=== PATIENT | female | born 1950 | race Caucasian/White ===

== ENCOUNTER → 2016-04-07 | Outpatient (CLI) | payer OTHER ==
--- NOTE | 2016-04-07 15:23 | REP ---
Clinical: Chronic medical renal disease. Technique: Real time powers scale and color evaluation using curved array transducer. Comparison: 02/01/2016. Findings: Right kidney is atrophic and echogenic measuring approximately 8.3 x 3.5 x 3.0 cm without hydronephrosis and includes 1.5 cm mid pole cyst. The left kidney is normal in reniform shape and echogenicity with increased central sinus fat and measures 12.9 x 5.5 x 4.1 cm without hydronephrosis, nephrolithiasis or cyst. Impression: Atrophic appearance to the right kidney. Left kidney demonstrates medical renal disease. Signed by Pj Ruby MD 04/07/2016 03:15 P
== END ==
LOC: M RAD 14:21
PROVIDERS: ATTEND Internal Medicine Nephrology
DX: N18.3 Chronic kidney disease, stage 3 (moderate) (principal); N26.1 Atrophy of kidney (terminal); N17.9 Acute kidney failure, unspecified

== ENCOUNTER → 2018-08-07 | Outpatient (REF) | payer MEDICARE | LOC: M LAB REF 12:12 | PROVIDERS: ATTEND Nurse Practitioner Adult Health | DX: N18.3 Chronic kidney disease, stage 3 (moderate) (principal) ==

== ENCOUNTER → 2019-04-29 | Outpatient (REF) | payer MEDICARE | LOC: M LAB REF 12:23 | PROVIDERS: ATTEND Nurse Practitioner Adult Health | DX: J02.9 Acute pharyngitis, unspecified (principal); R50.9 Fever, unspecified ==

== ENCOUNTER → 2020-08-27 | Outpatient (REF) | payer MEDICARE ==
[2020-08-28 09:44] LABS: TOTAL PROTEIN 7.3 GM/DL (6.4-8.2)
[2020-08-28 11:17] LABS: ALBUMIN 4.26 GM/DL (3.29-5.55); ALBUMIN % 58.4 % (55.8-66.1); ALPHA-1-GLOBULIN % 4.1 % (2.9-4.9); ALPHA-2-GLOBULINS 0.99 GM/DL (0.42-0.99); ALPHA-2-GLOBULINS % 13.6 % (7.1-11.8); BETA-1-GLOBULINS 0.39 GM/DL (0.28-0.60); BETA-1-GLOBULINS % 5.3 % (4.7-7.2); BETA-2-GLOBULINS 0.36 GM/DL (0.19-0.55); BETA-2-GLOBULINS % 4.9 % (3.2-6.5); GAMMA GLOBULIN % 13.7 % (11.1-18.8)
== END ==
LOC: M LAB REF 16:56
PROVIDERS: ATTEND Internal Medicine Nephrology
DX: E83.52 Hypercalcemia (principal)

== ENCOUNTER → 2020-09-29 | Outpatient (REF) | payer MEDICARE | LOC: M LAB REF 16:52 | PROVIDERS: ATTEND Internal Medicine Nephrology | DX: E83.52 Hypercalcemia (principal) ==

== ENCOUNTER → 2020-11-10 | Outpatient (REF) | payer MEDICARE | LOC: M LAB REF 16:07 | PROVIDERS: ATTEND Nurse Practitioner Adult Health | DX: Z01.812 Encounter for preprocedural laboratory examination (principal); E83.52 Hypercalcemia; N18.31 Chronic kidney disease, stage 3a ==

== ENCOUNTER → 2020-11-12 | Outpatient (CLI) | payer MEDICARE ==
[~2020-11-12] MED LIST: ISOVUE-370 76% 100ML VIAL As Ordered ONE
--- NOTE | 2020-11-13 09:23 | REP ---
INDICATION: CKD 3A, HYPERCALCEMIA. COMPARISON: None. TECHNIQUE: Standard helical technique before and after the intravenous administration of 100 cc Isovue 370. FINDINGS: The pre contrast enhanced portion examination shows a patent splenic densities to be within normal limits. There are a few tiny right nephroliths and there are 2 nonobstructing left nephroliths in the interpolar region. There is a 1.7 cm sized smoothly marginated structure which has higher than water density Hounsfield unit readings. The contrast-enhanced portion examination shows no evidence of measurable enhancement of the right renal structure. There is marked right renal atrophy/hypoplasia. Tiny cyst is seen in the superior pole the left kidney. Surgical clips are seen in the gallbladder fossa. The liver, spleen, pancreas, and adrenal glands are unremarkable. The abdominal aorta and para-aortic regions are within normal limits. There is calcified atherosclerotic change. There is no free fluid or free air. The bowel loops and the mesenteries are within normal limits. 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 Bone window technique throughout the examination shows spinal degenerative changes. IMPRESSION: 1. Nodule like finding arising from the right kidney, as described above, and likely representing a hyperdense cyst. There is no measurable contrast-enhancement. 2. Bilateral nonobstructing nephroliths. 3. There is no evidence of acute intra-abdominal or intrapelvic disease with findings and exam limitations as described above. <Electronically signed by Shun Liz > 11/13/20 [id number]
--- NOTE | 2020-11-13 09:27 | REP ---
INDICATION: CKD 3A, HYPERCALCEMIA COMPARISON: None. TECHNIQUE: Standard helical technique without intravenous contrast administration FINDINGS: Noncontrast enhanced limited evaluation of the mediastinum and pulmonary corie show no evidence of a mass or adenopathy. There are no pleural or pericardial effusions. The imaged osseous structures shows spinal degenerative changes. Evaluation of the lung healy shows no abnormal nodules, masses, or opacities. IMPRESSION: CT findings are within normal limits as described above. <Electronically signed by Shun Liz > 11/13/20 [id number]
== END ==
LOC: M RAD 17:17
PROVIDERS: ATTEND Internal Medicine Nephrology
DX: N18.31 Chronic kidney disease, stage 3a (principal); E83.52 Hypercalcemia
CPT/HCPCS: 71250; 74178; Q9967

== ENCOUNTER → 2021-08-13 | Outpatient (REF) | payer MEDICARE ==
[2021-08-13 18:19] LABS: INR 1.16; PROTHROMBIN TIME 15.2 SECONDS (12.7-14.5)
[2021-08-13 18:20] LABS: PARTIAL THROMBOPLASTIN TIME 32.6 SECONDS (25.9-37.0)
[2021-08-16 14:10] LABS: CARDIOLIPIN IGA ANTIBODY <9 APL U/mL (0-11); CARDIOLIPIN IGG ANTIBODY <9 GPL U/mL (0-14); CARDIOLIPIN IGM ANTIBODY <9 MPL U/mL (0-12)
== END ==
LOC: M LAB REF 16:12
PROVIDERS: ATTEND Nurse Practitioner Adult Health
DX: H34.823 Venous engorgement, bilateral (principal)

== ENCOUNTER → 2021-11-26 | Outpatient (REF) | payer MEDICARE ==
[2021-11-26 18:35] LABS: PERCENT SATURATION 4.1 % (13.2-45.0)
== END ==
LOC: M LAB REF 17:04
PROVIDERS: ATTEND Nurse Practitioner Family
DX: D50.9 Iron deficiency anemia, unspecified (principal)

== ENCOUNTER → 2021-12-06 | Outpatient (REF) | payer MEDICARE ==
[2021-12-07 12:19] LABS: HEMATOCRIT 32.4 % (36.0-47.0)
[2021-12-07 13:03] LABS: PERCENT SATURATION 16.1 % (13.2-45.0)
== END ==
LOC: M LAB REF 11:30
PROVIDERS: ATTEND Nurse Practitioner Adult Health
DX: D64.9 Anemia, unspecified (principal)

== ENCOUNTER → 2021-12-29 | Outpatient (CLI) | payer MEDICARE ==
[~2021-12-29] MED LIST changes: +ISOVUE-300 61% 50ML VIAL ONE; -ISOVUE-370 76% 100ML VIAL As Ordered ONE; +LIDOCAINE 1% MDV 20ML VIAL ONE; +methylPREDNISolone SUSP 40MG/ML 1ML VIAL (DEPO MEDROL) ONE
== END ==
LOC: M PLAIMG 14:50
PROVIDERS: ATTEND Physician Assistant
DX: M19.012 Primary osteoarthritis, left shoulder (principal)
CPT/HCPCS: 20610; 76000; J1030; Q9967

== ENCOUNTER → 2022-04-04 | Outpatient (REF) | payer MEDICARE | LOC: M LAB REF 11:08 | PROVIDERS: ATTEND Nurse Practitioner Adult Health | DX: D50.9 Iron deficiency anemia, unspecified (principal) ==

== ENCOUNTER → 2022-04-20 | Outpatient (CLI) | payer MEDICARE | LOC: M SOG 07:48 | PROVIDERS: ATTEND Orthopaedic Surgery | DX: M25.512 Pain in left shoulder (principal); M54.2 Cervicalgia; M19.012 Primary osteoarthritis, left shoulder; M85.812 Other specified disorders of bone density and structure, left shoulder; M47.812 Spondylosis without myelopathy or radiculopathy, cervical region ==

== ENCOUNTER → 2022-05-16 | Outpatient (CLI) | payer MEDICARE ==
[~2022-05-16] MED LIST changes: -ISOVUE-300 61% 50ML VIAL ONE; -LIDOCAINE 1% MDV 20ML VIAL ONE; +PROHANCE 279.3MG/ML 15ML VIAL As Ordered ONE; +PROHANCE 279.3MG/ML 5ML VIAL As Ordered ONE; -methylPREDNISolone SUSP 40MG/ML 1ML VIAL (DEPO MEDROL) ONE
== END ==
LOC: M RAD 15:38
PROVIDERS: ATTEND Orthopaedic Surgery
DX: M19.012 Primary osteoarthritis, left shoulder (principal)
CPT/HCPCS: 73223; A9576

== ENCOUNTER 2022-06-06 06:34 | Day surgery (SDC) | payer MEDICARE ==
[~2022-06-06] VITALS: Ht 172.7 cm; Wt 105.7 kg
[~2022-06-06 06:34] MED LIST changes: +ALBU8.5H INH; +CHLO125TA PO; +CLON-412 PO; +FERR325T3 PO; +LISI20TA33 PO; +MACUHEALTH PO; +METO1TAB7 PO; +NS 1,000 ML IV ONE; -PROHANCE 279.3MG/ML 15ML VIAL As Ordered ONE; -PROHANCE 279.3MG/ML 5ML VIAL As Ordered ONE; +VENL37.598 PO; +XARE15TA PO
[2022-06-06] MEDS ORDERED: propofoL 200 MG/20 ML VIAL As Ordered ONE (08:01)
[2022-06-06] MEDS ORDERED: LIDOCAINE 2% 100MG/5ML SDV (FOR ANES.) As Ordered ONE (08:01)
[2022-06-06 08:30] VITALS: BP 190/90
== END 2022-06-06 08:48 | disposition home or self-care (01) ==
LOC: M OPP 06:34
PROVIDERS: ATTEND Internal Medicine Gastroenterology
DX: D50.9 Iron deficiency anemia, unspecified (principal); K57.30 Diverticulosis of large intestine without perforation or abscess without bleeding; K64.0 First degree hemorrhoids; K44.9 Diaphragmatic hernia without obstruction or gangrene; K31.819 Angiodysplasia of stomach and duodenum without bleeding

== ENCOUNTER → 2022-09-21 | Outpatient (CLI) | payer MEDICARE ==
[~2022-09-21] MED LIST changes: +ACET-897 PO; +LISI30TA4 PO; -NS 1,000 ML IV ONE
== END ==
LOC: M RAD 13:36
PROVIDERS: ATTEND Orthopaedic Surgery Hand Surgery
DX: M19.012 Primary osteoarthritis, left shoulder (principal); M25.712 Osteophyte, left shoulder

== ENCOUNTER 2022-10-12 08:32 | Observation (INO) | payer MEDICARE ==
[~2022-10-12] VITALS: Ht 172.7 cm; Wt 103.7 kg
[2022-10-12] MEDS ORDERED: fentaNYL 100 MCG/2 ML INJECTION IV PRN ×2 (08:55→14:25)
[2022-10-12] MEDS ORDERED: ROPIvacaine 0.5% 30ML VIAL PN ONE ×2 (08:55→10:30)
[2022-10-12] MEDS ORDERED: MIDAZOLAM INJ 2MG/2ML VIAL IV PRN (08:55)
[2022-10-12] MEDS ORDERED: LR 1,000 ML IV SCH (08:55)
[2022-10-12] MEDS ORDERED: MIDAZOLAM INJ 2MG/2ML VIAL As Ordered ONE (09:09)
[2022-10-12] MEDS ORDERED: fentaNYL 100 MCG/2 ML INJECTION As Ordered ONE ×2 (09:09→14:10)
[2022-10-12] MEDS ORDERED: LIDOCAINE 2% 100MG/5ML SDV (FOR ANES.) As Ordered ONE (09:10)
[2022-10-12] MEDS ORDERED: ONDANSETRON 4MG 2ML VIAL As Ordered ONE (09:10)
[2022-10-12] MEDS ORDERED: propofoL 200 MG/20 ML VIAL As Ordered ONE (09:10)
[2022-10-12] MEDS ORDERED: ROCURONIUM BROMIDE 50MG/5ML VIAL As Ordered ONE ×2 (09:10→12:43)
[2022-10-12] MEDS ORDERED: NORV5TAB PO (09:25)
[2022-10-12] MEDS ORDERED: LIDOCAINE 1% SDV 5ML VIAL PN ONE (10:30)
[2022-10-12] MEDS ORDERED: EPINEPHrine INJ 1 MG/ML 1ML AMP PN ONE (10:30)
[2022-10-12] MEDS ORDERED: dexAMETHasone 10MG/1ML VIAL PRES.FREE PN ONE (10:30)
[2022-10-12] MEDS ORDERED: TRANEXAMIC ACID 100 MG/ML 10ML VIAL As Ordered ONE (10:59)
[2022-10-12] MEDS ORDERED: VANCOMYCIN 500MG/10ML VIAL As Ordered ONE (10:59)
[2022-10-12] MEDS ORDERED: LIDOCAINE W/EPINEPHRINE 1% 20ML VIAL As Ordered ONE (10:59)
[2022-10-12] MEDS ORDERED: ceFAZolin SOD 2 GM in IV 1 EA IV ONE (11:05)
[2022-10-12] MEDS: MIDAZOLAM INJ 2MG/2ML VIAL IV PRN ×2 (11:20→11:27)
[2022-10-12] MEDS: fentaNYL 100 MCG/2 ML INJECTION IV PRN ×2 (11:20→11:27)
[2022-10-12] MEDS ORDERED: ACETAMINOPHEN 1000MG 100ML IV BAG As Ordered ONE ×2 (12:09→14:50)
[2022-10-12] MEDS ORDERED: PHENYLephrine 500MCG 5ML (100MCG/ML) SYRINGE As Ordered ONE (12:21)
[2022-10-12] MEDS ORDERED: VASOPRESSIN INJ 20UNITS/ML 1ML VIAL As Ordered ONE (12:41)
[2022-10-12] MEDS ORDERED: ePHEDrine SULFATE 25 MG/5 ML(5MG/ML) SYRINGE As Ordered ONE (12:43)
[2022-10-12] MEDS ORDERED: SUGAMMADEX SODIUM 500 MG/5 ML VIAL (BRIDION) As Ordered ONE (13:09)
[2022-10-12] MEDS ORDERED: GLYCOPYRROLATE INJ 0.2 MG/ML 2 ML VIAL As Ordered ONE (13:18)
[2022-10-12] MEDS ORDERED: METOCLOPRAMIDE INJ 10MG/2ML VIAL As Ordered ONE (14:11)
[2022-10-12] MEDS ORDERED: HYDROMORPHONE HCL 0.5 MG/ 0.5 ML SYRINGE IV PRN (14:25)
[2022-10-12] MEDS ORDERED: MEPERIDINE 25 MG/ML 1ML VIAL IV PRN (14:25)
[2022-10-12] MEDS ORDERED: oxyCODONE 5MG TAB PO PRN ×2 (14:25→14:40)
[2022-10-12] MEDS ORDERED: ONDANSETRON 4MG 2ML VIAL IV PRN (14:25)
[2022-10-12] MEDS ORDERED: MORPHINE 4 MG/ML 1ML VIAL IV PRN (14:40)
[2022-10-12] MEDS ORDERED: ACETAMINOPHEN TAB 650MG DOSE (2X325MG) PO PRN (14:40)
[2022-10-12] MEDS ORDERED: ALBUTEROL 90 MCG/ACT 8GM HFA INHALER INH PRN (14:55)
[2022-10-12] MEDS ORDERED: PERC5TAB12 PO (16:40)
[2022-10-12 17:00] VITALS: BP 110/62; TEMP 97.3; O2SAT 96
[2022-10-12 17:30] VITALS: BP 107/60; TEMP 97.3; O2SAT 96
[2022-10-12 18:00] VITALS: BP_SYST 105; BP_SYST 107; BP_DIAS 58; BP_DIAS 64; TEMP 97.2; TEMP 97.3; O2SAT 96
[2022-10-12] MEDS ORDERED: MUPI2OI TOP (18:07)
[2022-10-12] MEDS ORDERED: HOME MED LIST COMPLETE! XX SCH (18:10)
[2022-10-12] MEDS: ceFAZolin SOD 1 GM in D5W MINI-BAG PLUS 50 ML IV SCH (20:47)
[2022-10-12 23:00] VITALS: BP 138/79; TEMP 97.3; O2SAT 95
[2022-10-13 01:58] VITALS: BP 135/78; TEMP 97.2; O2SAT 96
[2022-10-13] MEDS: ceFAZolin SOD 1 GM in D5W MINI-BAG PLUS 50 ML IV SCH ×2 (04:07→12:27)
[2022-10-13 04:56] VITALS: BP 147/88; TEMP 95; O2SAT 95
[2022-10-13 06:29] LABS: HEMOGLOBIN 12.2 g/dl (12.0-15.5); MEAN CORPUSCULAR HEMOGLOBIN 30.3 pg (27.0-33.0); MEAN CORPUSCULAR HGB CONC 32.1 g/dl (32.0-36.5); MEAN CORPUSCULAR VOLUME 94.5 fl (80.0-96.0); PLATELET COUNT, AUTOMATED 183 10^3/uL (150-450); RED BLOOD COUNT 4.02 10^6/uL (4.00-5.40); WHITE BLOOD COUNT 15.1 10^3/uL (4.0-10.0)
[2022-10-13 06:51] LABS: BLOOD UREA NITROGEN 28 MG/DL (9-23); CARBON DIOXIDE LEVEL 27 MMOL/L (20-31); CHLORIDE LEVEL 103 MMOL/L (98-107); CREATININE FOR GFR 0.77 MG/DL (0.55-1.30); GLOMERULAR FILTRATION RATE > 60.0 (>39); GLUCOSE, FASTING 138 MG/DL (74-106); POTASSIUM SERUM 3.9 MMOL/L (3.5-5.1); SODIUM LEVEL 140 MMOL/L (136-145)
[2022-10-13] MEDS ORDERED: FERROUS SULFATE 325MG TAB PO SCH (09:00)
[2022-10-13] MEDS ORDERED: amLODIPine 5 MG TAB PO SCH (09:00)
[2022-10-13] MEDS ORDERED: VENLAFAXINE **XR** 75MG CAPSULE PO SCH (09:00)
[2022-10-13] MEDS ORDERED: METOPROLOL SUCC (TopROL XL) 50MG **XL** TAB PO SCH (09:00)
[2022-10-13] MEDS ORDERED: CHLORTHALIDONE 25 MG TAB PO SCH (09:00)
[2022-10-13 10:00] VITALS: BP 161/95; TEMP 98.6; O2SAT 93
[2022-10-13 10:10] VITALS: BP 157/95
[2022-10-13 14:00] VITALS: BP 151/81; TEMP 97.9; O2SAT 93
[2022-10-13] MEDS ORDERED: RIVAROXABAN 15MG TAB (XARELTO) PO SCH (18:00)
== END 2022-10-13 15:30 | disposition home or self-care (01) ==
LOC: M SDC 08:32 → M ED INP 08:33 → M MS5PR 16:55
PROVIDERS: ADMIT Orthopaedic Surgery Hand Surgery; ATTEND Orthopaedic Surgery Hand Surgery
DX: M19.012 Primary osteoarthritis, left shoulder (principal); I48.91 Unspecified atrial fibrillation; G47.9 Sleep disorder, unspecified; N28.9 Disorder of kidney and ureter, unspecified; Z68.36 Body mass index [BMI] 36.0-36.9, adult; Z91.048 Other nonmedicinal substance allergy status; Z79.899 Other long term (current) drug therapy; Z79.01 Long term (current) use of anticoagulants
CPT/HCPCS: 23472; 36415; 64415; 73020; 80048; 85027; 88300; 96374; 96376; 97116; 97161; 97165; 97535; C1713; C1776; G0378; J0131; J0665; J0690; J1100; J2250; J2371; J2405; J2598; J2765; J3010

== ENCOUNTER → 2022-10-21 | Outpatient (CLI) | payer MEDICARE ==
[~2022-10-21] MED LIST changes: +MUPI2OI TOP; +NORV5TAB PO; +PERC5TAB12 PO
== END ==
LOC: M SOG 07:59
PROVIDERS: ATTEND Physician Assistant
DX: M25.512 Pain in left shoulder (principal); Z96.612 Presence of left artificial shoulder joint

== ENCOUNTER → 2022-11-29 | Outpatient (REF) | payer MEDICARE | LOC: M LAB REF 17:39 | PROVIDERS: ATTEND Nurse Practitioner Family | DX: N39.0 Urinary tract infection, site not specified (principal) ==

== ENCOUNTER → 2022-12-01 | Outpatient (CLI) | payer MEDICARE | LOC: M SOG 12:54 | PROVIDERS: ATTEND Physician Assistant | DX: M25.512 Pain in left shoulder (principal); Z96.612 Presence of left artificial shoulder joint ==

== ENCOUNTER → 2023-01-16 | Outpatient (CLI) | payer MEDICARE | LOC: M SOG 14:19 | PROVIDERS: ATTEND Physician Assistant | DX: Z47.1 Aftercare following joint replacement surgery (principal); Z96.612 Presence of left artificial shoulder joint ==

== ENCOUNTER → 2023-04-20 | Outpatient (CLI) | payer MEDICARE | LOC: M SOG 08:21 | PROVIDERS: ATTEND Physician Assistant | DX: Z47.1 Aftercare following joint replacement surgery (principal) ==

== ENCOUNTER → 2023-08-08 | Outpatient (REF) | payer MEDICARE | LOC: M LAB REF 17:33 | PROVIDERS: ATTEND Nurse Practitioner Adult Health | DX: D64.9 Anemia, unspecified (principal) ==

== ENCOUNTER 2023-11-30 08:36 | Inpatient (IN) | payer MEDICARE ==
[2023-11-30] VITALS (16 sets, daily range): BP systolic 105–157; BP diastolic 52–72; TEMP 96.4–98.2; O2SAT 90–100
[~2023-11-30] VITALS: Ht 172.7 cm; Wt 104.0 kg
[2023-11-30 09:29] LABS: BASO # 0.1 10^3/uL (0.0-0.2); BASO % 0.9 % (0.0-1.0); EOS # 0.2 10^3/uL (0.0-0.5); EOS % 2.2 % (0.0-3.0); LYMPH % 9.6 % (24.0-44.0); MEAN CORPUSCULAR HEMOGLOBIN 20.1 pg (27.0-33.0); MEAN CORPUSCULAR HGB CONC 25.7 g/dl (32.0-36.5); MEAN CORPUSCULAR VOLUME 78.2 fl (80.0-96.0); MONO % 9.9 % (2.0-8.0); NEUTROPHILS # 7.7 10^3/uL (1.5-8.5); NEUTROPHILS % 76.5 % (36.0-66.0); PLATELET COUNT, AUTOMATED 260 10^3/uL (150-450); RED BLOOD COUNT 2.39 10^6/uL (4.00-5.40); WHITE BLOOD COUNT 10.1 10^3/uL (4.0-10.0)
[2023-11-30 09:36] LABS: HEMATOCRIT 18.7 % (36.0-47.0); HEMOGLOBIN 4.8 g/dl (12.0-15.5)
[2023-11-30 09:47] LABS: INR 1.88; PARTIAL THROMBOPLASTIN TIME 33.3 SECONDS (24.8-34.2); PROTHROMBIN TIME 20.9 SECONDS (12.5-14.5)
[2023-11-30 10:06] LABS: CREATININE FOR GFR 1.15 MG/DL (0.55-1.30); GLOMERULAR FILTRATION RATE 49.4 (>39)
[2023-11-30 10:07] LABS: CALCIUM LEVEL 9.3 MG/DL (8.3-10.6); CARBON DIOXIDE LEVEL 20.4 MMOL/L (20-31); POTASSIUM SERUM 4.3 MMOL/L (3.5-5.1)
[2023-11-30 10:08] LABS: ALBUMIN 3.5 G/DL (3.2-5.2); BILIRUBIN,DIRECT 0.2 MG/DL (<0.4); BILIRUBIN,TOTAL 0.7 MG/DL (0.3-1.2); TOTAL PROTEIN 6.7 G/DL (5.7-8.2)
[2023-11-30] MEDS ORDERED: ALLO100T PO (10:36)
[2023-11-30] MEDS ORDERED: HOME MED LIST COMPLETE! XX SCH (10:45)
[2023-11-30] MEDS ORDERED: ALBUTEROL 90 MCG/ACT 8GM HFA INHALER INH PRN (12:20)
[2023-11-30] MEDS ORDERED: ISOVUE-370 76% 100ML VIAL As Ordered ONE (12:40)
[2023-11-30] MEDS: PANTOPRAZOLE 40MG VIAL IV SCH (13:12)
[2023-11-30] MEDS: SUCRALFATE SUSP 1GM/10ML UD PO SCH (13:12)
[2023-11-30 13:40] LABS: PERCENT SATURATION 8.6 % (13.2-45.0)
[2023-11-30 13:41] LABS: FERRITIN 5.5 NG/ML (7.3-270.7)
[2023-11-30 13:42] LABS: FOLATE 9.37 NG/ML (>5.4)
[2023-11-30 17:15] LABS: HEMATOCRIT 24.7 % (36.0-47.0)
[2023-11-30 17:28] LABS: HEMOGLOBIN 7.3 g/dl (12.0-15.5)
[2023-11-30] MEDS: METOPROLOL SUCC *XL* 25MG TAB (TopROL *XL*) PO SCH (20:00)
[2023-11-30] MEDS: SUCRALFATE 1 GM TAB PO SCH (20:01)
[2023-11-30 23:14] LABS: HEMATOCRIT 26.6 % (36.0-47.0); HEMOGLOBIN 8.1 g/dl (12.0-15.5)
[2023-12-01] VITALS (7 sets, daily range): BP systolic 137–178; BP diastolic 69–80; TEMP 97.1–99.5; O2SAT 93–98
[2023-12-01 06:46] LABS: HEMATOCRIT 25.6 % (36.0-47.0); HEMOGLOBIN 7.9 g/dl (12.0-15.5); MEAN CORPUSCULAR HEMOGLOBIN 24.2 pg (27.0-33.0); MEAN CORPUSCULAR HGB CONC 30.9 g/dl (32.0-36.5); MEAN CORPUSCULAR VOLUME 78.5 fl (80.0-96.0); PLATELET COUNT, AUTOMATED 197 10^3/uL (150-450); RED BLOOD COUNT 3.26 10^6/uL (4.00-5.40)
[2023-12-01 06:52] LABS: BLOOD UREA NITROGEN 20 MG/DL (9-23); CARBON DIOXIDE LEVEL 26 MMOL/L (20-31); CHLORIDE LEVEL 107 MMOL/L (98-107); CREATININE FOR GFR 0.94 MG/DL (0.55-1.30); GLOMERULAR FILTRATION RATE > 60.0 (>39); GLUCOSE, FASTING 114 MG/DL (74-106); POTASSIUM SERUM 4.1 MMOL/L (3.5-5.1); SODIUM LEVEL 138 MMOL/L (136-145)
[2023-12-01] MEDS: VENLAFAXINE **XR** 75MG CAPSULE PO SCH (08:51)
[2023-12-01] MEDS: amLODIPine 5 MG TAB PO SCH (08:51)
[2023-12-01 18:22] LABS: HEMATOCRIT 27.8 % (36.0-47.0); HEMOGLOBIN 8.5 g/dl (12.0-15.5)
[2023-12-01 23:00] LABS: HEMATOCRIT 26.6 % (36.0-47.0)
[2023-12-02 00:27] VITALS: BP 118/60; TEMP 97.4; O2SAT 96
[2023-12-02 04:27] VITALS: BP 145/95; TEMP 97; O2SAT 94
[2023-12-02 06:23] LABS: HEMATOCRIT 25.7 % (36.0-47.0); HEMOGLOBIN 7.7 g/dl (12.0-15.5); MEAN CORPUSCULAR HEMOGLOBIN 23.8 pg (27.0-33.0); MEAN CORPUSCULAR VOLUME 79.6 fl (80.0-96.0); PLATELET COUNT, AUTOMATED 164 10^3/uL (150-450); RED BLOOD COUNT 3.23 10^6/uL (4.00-5.40); WHITE BLOOD COUNT 10.6 10^3/uL (4.0-10.0)
[2023-12-02 06:42] LABS: BLOOD UREA NITROGEN 11 MG/DL (9-23); CALCIUM LEVEL 8.9 MG/DL (8.3-10.6); CARBON DIOXIDE LEVEL 29 MMOL/L (20-31); CHLORIDE LEVEL 105 MMOL/L (98-107); CREATININE FOR GFR 0.93 MG/DL (0.55-1.30); GLOMERULAR FILTRATION RATE > 60.0 (>39); GLUCOSE, FASTING 96 MG/DL (74-106); POTASSIUM SERUM 3.7 MMOL/L (3.5-5.1); SODIUM LEVEL 140 MMOL/L (136-145)
[2023-12-02 07:32] LABS: HEMATOCRIT 26.4 % (36.0-47.0); HEMOGLOBIN 7.9 g/dl (12.0-15.5)
[2023-12-02 07:47] VITALS: BP 148/98; TEMP 96; O2SAT 97
[2023-12-02] MEDS: allopurinoL 100 MG TAB PO SCH (08:10)
[2023-12-02 12:29] LABS: HEMATOCRIT 29.8 % (36.0-47.0)
[2023-12-02 15:51] VITALS: BP 138/70; TEMP 97.3; O2SAT 98
[2023-12-02 18:23] LABS: HEMATOCRIT 30.7 % (36.0-47.0); HEMOGLOBIN 9.1 g/dl (12.0-15.5)
[2023-12-02 19:55] VITALS: BP 140/76; TEMP 97.9; O2SAT 97
[2023-12-03 01:56] LABS: HEMATOCRIT 26.1 % (36.0-47.0); HEMOGLOBIN 7.8 g/dl (12.0-15.5)
[2023-12-03 03:47] VITALS: BP 135/62; TEMP 97.1; O2SAT 93
[2023-12-03 07:44] VITALS: BP 158/88; TEMP 97.9; O2SAT 92
[2023-12-03 08:08] VITALS: BP 158/88
[2023-12-03 09:27] LABS: HEMATOCRIT 28.6 % (36.0-47.0); HEMOGLOBIN 8.5 g/dl (12.0-15.5)
[2023-12-03] MEDS ORDERED: FERR325T3 PO (11:05)
[2023-12-03] MEDS ORDERED: COLA100C5 PO (11:05)
[2023-12-03] MEDS ORDERED: VITA500C24 PO (11:05)
== END 2023-12-03 12:12 | disposition home or self-care (01) | DRG 812 ==
LOC: M ED 08:36 → M ED INP 12:04 → M PCU 14:37
PROVIDERS: ADMIT Internal Medicine; ATTEND Internal Medicine
PROC: 30233N1 Transfusion of Nonautologous Red Blood Cells into Peripheral Vein, Percutaneous Approach (ICD-10-PCS; principal; 2023-11-30)
DX: D64.9 Anemia, unspecified (principal); I48.92 Unspecified atrial flutter; N18.2 Chronic kidney disease, stage 2 (mild); I12.9 Hypertensive chronic kidney disease with stage 1 through stage 4 chronic kidney disease, or unspecified chronic kidney disease; M10.9 Gout, unspecified; J45.909 Unspecified asthma, uncomplicated; F39 Unspecified mood [affective] disorder; Z79.899 Other long term (current) drug therapy; Z91.048 Other nonmedicinal substance allergy status; Z96.612 Presence of left artificial shoulder joint; Z79.01 Long term (current) use of anticoagulants; Z96.643 Presence of artificial hip joint, bilateral

== ENCOUNTER → 2023-12-13 | Outpatient (REF) | payer MEDICARE ==
[~2023-12-13] MED LIST changes: +ALLO100T PO; +COLA100C5 PO; +VITA500C24 PO
[2023-12-14 18:25] LABS: PERCENT SATURATION 6.6 % (13.2-45.0)
[2023-12-14 18:28] LABS: FERRITIN 14.1 NG/ML (7.3-270.7)
== END ==
LOC: M LAB REF 16:45
PROVIDERS: ATTEND Nurse Practitioner Adult Health
DX: D50.9 Iron deficiency anemia, unspecified (principal)

== ENCOUNTER 2023-12-18 12:51 | Day surgery (SDC) | payer MEDICARE ==
[~2023-12-18] VITALS: Ht 172.7 cm; Wt 102.7 kg
[2023-12-18] MEDS ORDERED: LIDOCAINE 2% 100MG/5ML SDV (FOR ANES.) As Ordered ONE (13:38)
[2023-12-18] MEDS ORDERED: propofoL 200 MG/20 ML VIAL As Ordered ONE (13:38)
[2023-12-18] MEDS ORDERED: dexmedeTOMIDine (4MCG/ML)200MCG/50ML BTL (PRECEDEX) As Ordered ONE (13:38)
[2023-12-18 14:48] VITALS: BP 129/61; O2SAT 98
== END 2023-12-18 14:53 | disposition home or self-care (01) ==
LOC: M SDC 12:51
PROVIDERS: ATTEND Internal Medicine Gastroenterology
DX: K31.819 Angiodysplasia of stomach and duodenum without bleeding (principal); D50.0 Iron deficiency anemia secondary to blood loss (chronic); I48.91 Unspecified atrial fibrillation; Z91.048 Other nonmedicinal substance allergy status

== ENCOUNTER 2024-01-02 09:54 | Outpatient (CLI) | payer MEDICARE ==
[~2024-01-02] VITALS: Ht 172.7 cm; Wt 101.8 kg
[~2024-01-02 09:54] MED LIST changes: +ALBUTEROL SULFATE 2.5MG/0.5ML INH NEB SOLN INH PRN; +EPINEPHrine INJ 1 MG/ML 1ML AMP IM PRN; +NS 1,000 ML IV SCH; +diphenhydrAMINE 50MG/ML VIAL IV PRN; +methylPREDNISolone 125MG 2ML VIAL IV PRN
[2024-01-02 10:25] VITALS: BP 164/83; O2SAT 97
[2024-01-02 10:40] VITALS: BP 137/79; O2SAT 95
[2024-01-02] MEDS: ACETAMINOPHEN 325 MG TAB PO ONE (10:42)
[2024-01-02] MEDS: diphenhydrAMINE 50MG/ML VIAL IV ONE (10:42)
[2024-01-02] MEDS: IRON SUCROSE 500 MG in NS 250 ML OVER 4 HRS IV ONE (11:34)
[2024-01-02 12:30] VITALS: BP 144/76; O2SAT 96
[2024-01-02 13:30] VITALS: BP 129/59; O2SAT 96
[2024-01-02 15:55] VITALS: BP 133/62; O2SAT 100
== END 2024-01-02 15:55 ==
LOC: M INFU 09:54
PROVIDERS: ATTEND Nurse Practitioner Adult Health
DX: D50.9 Iron deficiency anemia, unspecified (principal); Z91.048 Other nonmedicinal substance allergy status
CPT/HCPCS: 96365; 96366; 96367; J1200; J1756

== ENCOUNTER → 2024-01-11 | Outpatient (REF) | payer MEDICARE ==
[~2024-01-11] MED LIST changes: -ALBUTEROL SULFATE 2.5MG/0.5ML INH NEB SOLN INH PRN; -EPINEPHrine INJ 1 MG/ML 1ML AMP IM PRN; -NS 1,000 ML IV SCH; -diphenhydrAMINE 50MG/ML VIAL IV PRN; -methylPREDNISolone 125MG 2ML VIAL IV PRN
[2024-01-11 18:53] LABS: FERRITIN 131.3 NG/ML (7.3-270.7)
== END ==
LOC: M LAB REF 17:30
PROVIDERS: ATTEND Nurse Practitioner Adult Health
DX: D50.9 Iron deficiency anemia, unspecified (principal)

== ENCOUNTER → 2024-01-26 | Outpatient (REF) | payer MEDICARE | LOC: M LAB REF 12:56 | PROVIDERS: ATTEND Nurse Practitioner Adult Health | DX: D50.9 Iron deficiency anemia, unspecified (principal); D64.9 Anemia, unspecified ==

== ENCOUNTER → 2024-01-26 | Outpatient (CLI) | payer MEDICARE ==
[~2024-01-26] VITALS: Ht 172.7 cm; Wt 101.8 kg
[2024-01-26 12:00] VITALS: BP 129/60; O2SAT 100
[2024-01-26] MEDS: diphenhydrAMINE 25MG CAP PO ONE (14:20)
[2024-01-26] MEDS: ACETAMINOPHEN 500 MG TAB PO ONE (14:20)
[2024-01-26 14:49] VITALS: BP 118/70; TEMP 98.2; O2SAT 100
[2024-01-26 15:03] VITALS: BP 122/66; TEMP 98.4; O2SAT 98
[2024-01-26 15:45] VITALS: BP 106/64; TEMP 97.4; O2SAT 97
[2024-01-26 16:45] VITALS: BP 132/67; O2SAT 99
[2024-01-26] MEDS: FUROSEMIDE 20MG/2ML VIAL IV ONE (16:45)
== END ==
LOC: M INFU 12:43
PROVIDERS: ATTEND Nurse Practitioner Adult Health
DX: D50.9 Iron deficiency anemia, unspecified (principal); Z88.8 Allergy status to other drugs, medicaments and biological substances; Z91.048 Other nonmedicinal substance allergy status
CPT/HCPCS: 36430; 86850; 86900; 86901; 86920; P9016

== ENCOUNTER → 2024-01-28 | Outpatient (CLI) | payer MEDICARE | LOC: M LAB 10:20 | PROVIDERS: ATTEND Nurse Practitioner Adult Health | DX: D64.9 Anemia, unspecified (principal) ==

== ENCOUNTER 2024-01-29 08:50 | Outpatient (CLI) | payer MEDICARE ==
[~2024-01-29] VITALS: Ht 172.7 cm; Wt 105.0 kg
[2024-01-29 09:00] VITALS: BP 138/65; O2SAT 97
[2024-01-29] MEDS ORDERED: NS 250 ML IV ONE (09:30)
[2024-01-29] MEDS ORDERED: FUROSEMIDE 20MG/2ML VIAL IV ONE (09:30)
[2024-01-29] MEDS: ACETAMINOPHEN 500 MG TAB PO ONE (09:39)
[2024-01-29] MEDS: diphenhydrAMINE 25MG CAP PO ONE (09:39)
[2024-01-29 10:07] VITALS: BP 105/56; TEMP 98; O2SAT 100
[2024-01-29 11:16] VITALS: BP 140/63; TEMP 98; O2SAT 98
== END 2024-01-29 11:20 ==
LOC: M INFU 08:50
PROVIDERS: ATTEND Nurse Practitioner Adult Health
DX: D64.9 Anemia, unspecified (principal); Z91.048 Other nonmedicinal substance allergy status
CPT/HCPCS: 36430; P9016

== ENCOUNTER → 2024-02-16 | Outpatient (REF) | payer MEDICARE | LOC: M LAB REF 12:10 | PROVIDERS: ATTEND Nurse Practitioner Adult Health | DX: D50.9 Iron deficiency anemia, unspecified (principal) ==

== ENCOUNTER → 2024-03-01 | Outpatient (REF) | payer MEDICARE | LOC: M LAB REF 17:22 | PROVIDERS: ATTEND Nurse Practitioner Adult Health | DX: D50.9 Iron deficiency anemia, unspecified (principal) ==

== ENCOUNTER 2024-03-02 10:43 | Emergency (ER) | payer MEDICARE ==
[~2024-03-02] VITALS: Ht 172.7 cm; Wt 106.6 kg
[2024-03-02] VITALS (8 sets, daily range): BP systolic 116–167; BP diastolic 57–85; TEMP 97.1–97.9; O2SAT 93–99
[2024-03-02 12:17] LABS: BASO % 0.5 % (0.0-1.0); EOS # 0.3 10^3/uL (0.0-0.5); EOS % 3.4 % (0.0-3.0); HEMATOCRIT 21.3 % (36.0-47.0); LYMPH % 12.6 % (24.0-44.0); MEAN CORPUSCULAR HEMOGLOBIN 24.2 pg (27.0-33.0); MEAN CORPUSCULAR HGB CONC 28.6 g/dl (32.0-36.5); MEAN CORPUSCULAR VOLUME 84.5 fl (80.0-96.0); MONO # 0.8 10^3/uL (0.0-0.8); MONO % 10.9 % (2.0-8.0); NEUTROPHILS # 5.5 10^3/uL (1.5-8.5); NEUTROPHILS % 71.8 % (36.0-66.0); PLATELET COUNT, AUTOMATED 207 10^3/uL (150-450); RED BLOOD COUNT 2.52 10^6/uL (4.00-5.40); WHITE BLOOD COUNT 7.6 10^3/uL (4.0-10.0)
[2024-03-02 12:19] LABS: HEMOGLOBIN 6.1 g/dl (12.0-15.5)
[2024-03-02 12:29] LABS: INR 0.98; PARTIAL THROMBOPLASTIN TIME 25.4 SECONDS (24.8-34.2); PROTHROMBIN TIME 13.3 SECONDS (12.5-14.5)
[2024-03-02 12:50] LABS: LIPASE 48 U/L (12-53)
[2024-03-02 12:52] LABS: ALBUMIN 3.5 G/DL (3.2-5.2); ALKALINE PHOSPHATASE 74 U/L (35-104); ALT/SGPT 20 U/L (7.0-40); AST/SGOT 20 U/L (<34); BILIRUBIN,DIRECT 0.1 MG/DL (<0.4); BILIRUBIN,TOTAL 0.4 MG/DL (0.3-1.2); BLOOD UREA NITROGEN 30 MG/DL (9-23); CALCIUM LEVEL 9.6 MG/DL (8.3-10.6); CARBON DIOXIDE LEVEL 27 MMOL/L (20-31); CHLORIDE LEVEL 106 MMOL/L (98-107); CREATININE FOR GFR 0.92 MG/DL (0.55-1.30); GLOMERULAR FILTRATION RATE > 60.0 (>39); GLUCOSE, FASTING 102 MG/DL (74-106); POTASSIUM SERUM 4.4 MMOL/L (3.5-5.1); SODIUM LEVEL 143 MMOL/L (136-145); TOTAL PROTEIN 7.2 G/DL (5.7-8.2)
== END 2024-03-02 19:07 | disposition home or self-care (01) ==
LOC: M ED 10:43
DX: D64.89 Other specified anemias (principal); N18.9 Chronic kidney disease, unspecified; Z91.048 Other nonmedicinal substance allergy status; Z79.1 Long term (current) use of non-steroidal anti-inflammatories (NSAID); Z79.51 Long term (current) use of inhaled steroids; Z79.899 Other long term (current) drug therapy
CPT/HCPCS: 36415; 80048; 80076; 83690; 85025; 85610; 85730; 86850; 86900; 86901; 86920; 99285; P9016

== ENCOUNTER → 2024-03-20 | Outpatient (REF) | payer MEDICARE ==
[2024-03-20 15:34] LABS: PERCENT SATURATION 3.9 % (13.2-45.0)
== END ==
LOC: M LAB REF 13:03
PROVIDERS: ATTEND Nurse Practitioner Adult Health
DX: D64.9 Anemia, unspecified (principal)

== ENCOUNTER → 2024-04-11 | Outpatient (REF) | payer MEDICARE | LOC: M LAB REF 12:04 | PROVIDERS: ATTEND Nurse Practitioner Adult Health | DX: D50.9 Iron deficiency anemia, unspecified (principal) ==

== ENCOUNTER → 2024-04-25 | Outpatient (CLI) | payer MEDICARE ==
[~2024-04-25] MED LIST changes: +ISOVUE-370 76% 100ML VIAL As Ordered ONE
== END ==
LOC: M RAD 07:31
PROVIDERS: ATTEND Nurse Practitioner Adult Health
DX: M87.077 Idiopathic aseptic necrosis of right toe(s) (principal)
CPT/HCPCS: 75635; Q9967

== ENCOUNTER → 2024-05-01 | Outpatient (CLI) | payer MEDICARE ==
[~2024-05-01] MED LIST changes: +AMOX500T2; -ISOVUE-370 76% 100ML VIAL As Ordered ONE
[2024-05-01 12:27] LABS: HEMATOCRIT 35.8 % (36.0-47.0); HEMOGLOBIN 10.4 g/dl (12.0-15.5); MEAN CORPUSCULAR HEMOGLOBIN 24.6 pg (27.0-33.0); MEAN CORPUSCULAR HGB CONC 29.1 g/dl (32.0-36.5); MEAN CORPUSCULAR VOLUME 84.6 fl (80.0-96.0); PLATELET COUNT, AUTOMATED 276 10^3/uL (150-450); RED BLOOD COUNT 4.23 10^6/uL (4.00-5.40); WHITE BLOOD COUNT 8.1 10^3/uL (4.0-10.0)
[2024-05-01 12:40] LABS: INR 0.93; PARTIAL THROMBOPLASTIN TIME 28.9 SECONDS (24.8-34.2); PROTHROMBIN TIME 12.8 SECONDS (12.5-14.5)
[2024-05-01 12:47] LABS: BLOOD UREA NITROGEN 19 MG/DL (9-23); CALCIUM LEVEL 8.8 MG/DL (8.3-10.6); CARBON DIOXIDE LEVEL 31 MMOL/L (20-31); CHLORIDE LEVEL 105 MMOL/L (98-107); CREATININE FOR GFR 0.92 MG/DL (0.55-1.30); GLOMERULAR FILTRATION RATE > 60.0 (>39); GLUCOSE, FASTING 101 MG/DL (74-106); POTASSIUM SERUM 4.5 MMOL/L (3.5-5.1); SODIUM LEVEL 142 MMOL/L (136-145)
== END ==
LOC: M LAB 11:42
PROVIDERS: ATTEND Physician Assistant
DX: Z01.818 Encounter for other preprocedural examination (principal); D69.8 Other specified hemorrhagic conditions

== ENCOUNTER 2024-05-04 02:44 | Emergency (ER) | payer MEDICARE ==
[~2024-05-04] VITALS: Ht 172.7 cm; Wt 107.0 kg
[~2024-05-04 02:44] MED LIST changes: -AMOX500T2
[2024-05-04] MEDS ORDERED: AMOX500T2 (03:05)
[2024-05-04 03:47] LABS: BASO # 0.1 10^3/uL (0.0-0.2); BASO % 0.3 % (0.0-1.0); EOS # 0.3 10^3/uL (0.0-0.5); EOS % 1.7 % (0.0-3.0); HEMATOCRIT 36.3 % (36.0-47.0); HEMOGLOBIN 10.8 g/dl (12.0-15.5); LYMPH # 1.7 10^3/uL (1.5-5.0); LYMPH % 10.5 % (24.0-44.0); MEAN CORPUSCULAR HEMOGLOBIN 25.1 pg (27.0-33.0); MEAN CORPUSCULAR HGB CONC 29.8 g/dl (32.0-36.5); MEAN CORPUSCULAR VOLUME 84.2 fl (80.0-96.0); MONO # 1.3 10^3/uL (0.0-0.8); MONO % 8.4 % (2.0-8.0); NEUTROPHILS # 12.3 10^3/uL (1.5-8.5); NEUTROPHILS % 78.4 % (36.0-66.0); PLATELET COUNT, AUTOMATED 257 10^3/uL (150-450); RED BLOOD COUNT 4.31 10^6/uL (4.00-5.40); WHITE BLOOD COUNT 15.7 10^3/uL (4.0-10.0)
[2024-05-04 03:56] LABS: BLOOD UREA NITROGEN 25 MG/DL (9-23); CALCIUM LEVEL 8.8 MG/DL (8.3-10.6); CARBON DIOXIDE LEVEL 28 MMOL/L (20-31); CHLORIDE LEVEL 102 MMOL/L (98-107); CK-MB VALUE MASS < 1.0 NG/ML (<3.6); CREATININE FOR GFR 1.14 MG/DL (0.55-1.30); GLOMERULAR FILTRATION RATE 49.9 (>39); GLUCOSE, FASTING 111 MG/DL (74-106); SODIUM LEVEL 139 MMOL/L (136-145)
[2024-05-04 03:57] LABS: CPK CREATINE PHOSPHOKINASE 76 U/L (34-145); MB/CK RELATIVE INDEX 1.31 (< OR =4)
[2024-05-04] MEDS ORDERED: ISOVUE-370 76% 100ML VIAL As Ordered ONE (04:20)
[2024-05-04] MEDS: ACETAMINOPHEN *IV* 1,000 MG in IV 1 EA IV ONE (04:53)
[2024-05-04 05:05] LABS: CK-MB VALUE MASS 1.1 NG/ML (<3.6)
[2024-05-04 05:06] LABS: MB/CK RELATIVE INDEX 1.77 (< OR =4)
[2024-05-04 09:06] VITALS: BP 154/71; TEMP 97; O2SAT 95
== END 2024-05-04 09:10 | disposition home or self-care (01) ==
LOC: M ED 02:44
DX: R07.9 Chest pain, unspecified (principal); I48.91 Unspecified atrial fibrillation; I10 Essential (primary) hypertension; I73.9 Peripheral vascular disease, unspecified; Z91.048 Other nonmedicinal substance allergy status; N18.9 Chronic kidney disease, unspecified; M19.071 Primary osteoarthritis, right ankle and foot; M47.814 Spondylosis without myelopathy or radiculopathy, thoracic region; Z90.49 Acquired absence of other specified parts of digestive tract; Z79.899 Other long term (current) drug therapy
CPT/HCPCS: 71045; 71275; 80048; 82550; 82553; 84484; 85025; 87486; 87581; 87633; 87798; 93005; 93041; 94760; 96374; 99285; J0131; Q9967

== ENCOUNTER → 2024-05-23 | Outpatient (REF) | payer MEDICARE ==
[~2024-05-23] MED LIST changes: +AMOX500T2
[2024-05-23 18:44] LABS: PERCENT SATURATION 8.3 % (13.2-45.0)
[2024-05-23 18:49] LABS: FERRITIN 84.1 NG/ML (7.3-270.7)
== END ==
LOC: M LAB REF 17:26
PROVIDERS: ATTEND Nurse Practitioner Family
DX: D50.9 Iron deficiency anemia, unspecified (principal)

== ENCOUNTER 2024-05-30 12:13 | Outpatient (CLI) | payer MEDICARE ==
[~2024-05-30] VITALS: Ht 165.1 cm; Wt 149.5 kg
[~2024-05-30 12:13] MED LIST changes: +ALBUTEROL SULFATE 2.5MG/0.5ML INH CONCENTRATE NEB SOLN INH PRN; +EPINEPHrine INJ 1 MG/ML 1ML AMP IM PRN; +diphenhydrAMINE 50MG/ML VIAL IV PRN; +methylPREDNISolone 125MG 2ML VIAL IV PRN
[2024-05-30] MEDS ORDERED: NS (Normal Saline) 0.9% 1,000 ML IV SCH (12:30)
[2024-05-30 12:35] VITALS: BP 129/59; O2SAT 96
[2024-05-30] MEDS: FERRIC CARBOXYMALTOSE 750 MG (VIAL MATE) IN 100ML NS IV ONE (12:52)
[2024-05-30 13:05] VITALS: BP 125/66; O2SAT 94
== END 2024-05-30 13:35 ==
LOC: M INFU 12:13
PROVIDERS: ATTEND Nurse Practitioner Family
DX: D50.9 Iron deficiency anemia, unspecified (principal); Z91.048 Other nonmedicinal substance allergy status
CPT/HCPCS: 96374; J1439

== ENCOUNTER 2024-06-06 12:30 | Outpatient (CLI) | payer MEDICARE ==
[~2024-06-06] VITALS: Ht 172.7 cm; Wt 105.0 kg
[2024-06-06 11:25] VITALS: BP 144/92; O2SAT 95
[~2024-06-06 12:30] MED LIST changes: +NS (Normal Saline) 0.9% 1,000 ML IV SCH
[2024-06-06] MEDS: FERRIC CARBOXYMALTOSE 750 MG (VIAL MATE) IN 100ML NS IV ONE (12:42)
[2024-06-06 13:05] VITALS: BP 135/78; O2SAT 95
== END 2024-06-06 13:07 | disposition home or self-care (01) ==
LOC: M INFU 12:30
PROVIDERS: ATTEND Nurse Practitioner Family
DX: D50.9 Iron deficiency anemia, unspecified (principal); Z91.048 Other nonmedicinal substance allergy status
CPT/HCPCS: 96365; J1439

== ENCOUNTER → 2025-02-18 | Outpatient (REF) | payer MEDICARE ==
[~2025-02-18] MED LIST changes: -ALBUTEROL SULFATE 2.5MG/0.5ML INH CONCENTRATE NEB SOLN INH PRN; -EPINEPHrine INJ 1 MG/ML 1ML AMP IM PRN; -NS (Normal Saline) 0.9% 1,000 ML IV SCH; -diphenhydrAMINE 50MG/ML VIAL IV PRN; -methylPREDNISolone 125MG 2ML VIAL IV PRN
[2025-02-18 14:17] LABS: IRON (FE) 21.0 UG/DL (50-170)
== END ==
LOC: M LAB REF 12:24
PROVIDERS: ATTEND Nurse Practitioner Adult Health
DX: D50.9 Iron deficiency anemia, unspecified (principal)

== ENCOUNTER → 2025-02-18 | Outpatient (REF) | payer MEDICARE | LOC: M LAB REF 17:11 | PROVIDERS: ATTEND Nurse Practitioner Adult Health | DX: D50.9 Iron deficiency anemia, unspecified (principal) ==